=== PATIENT | male | born 1990 | race Caucasian/White ===

== ENCOUNTER 2024-03-25 08:27 | Emergency (ER) | payer SELFPAY ==
[~2024-03-25] VITALS: Ht 177.8 cm; Wt 84.0 kg
[2024-03-25 08:35] VITALS: BP 109/78; PULSE 90; RESP 16; TEMP 98.8; O2SAT 98
[2024-03-25 08:46] LABS: COVID AG,FIA SOURCE NASAL SWAB
[2024-03-25 09:07] LABS: INFLUENZA TYPE A NEGATIVE FOR TYPE A (NEGATIVE); INFLUENZA TYPE B NEGATIVE FOR TYPE B (NEGATIVE); SARS-COV2 (COVID) ANTIGEN,FIA Negative (Negative)
[2024-03-25] MEDS: OXYMETAZOLINE HCL 0.05% 15 ML NASAL SPRAY NASAL ONE (10:36)
[2024-03-25] MEDS ORDERED: AMOX500C2 PO (10:36)
== END 2024-03-25 11:03 | disposition home or self-care (01) ==
LOC: EMS 08:27
DX: J06.9 Acute upper respiratory infection, unspecified (principal); H66.93 Otitis media, unspecified, bilateral; Z20.822 Contact with and (suspected) exposure to COVID-19
CPT/HCPCS: 87804; 99283